=== PATIENT | female | born 1990 | race African-American/Black ===

== ENCOUNTER 2017-01-10 12:52 | Emergency (ER) | payer OTHER ==
[~2017-01-10] VITALS: Ht 177.8 cm; Wt 104.0 kg
[~2017-01-10 12:52] MED LIST: AMOXICILLIN500 MG PO; CIPRO500 MG OR; CIPROFLOXACN500 MG PO; IBUPROFEN600 MG PO; IRON325 MG OR; IRON325 MG PO; NO; NO MEDS; NORCO1 TA2 PO; PERI-COLACE1 TAB PO; PRENATA3 PO; PRENATABS OR; ULTRAM50 M1 PO; ULTRAM50 MG OR
[2017-01-10] MEDS ORDERED: MOTRIN800 MG PO (13:55)
[2017-01-10] MEDS ORDERED: ZITHROMAX250 MG PO (13:55)
[2017-01-10] MEDS ORDERED: TESSALON PER100 MG PO (13:55)
[2017-01-10 14:00] VITALS: BP 167/88
== END 2017-01-10 14:11 | disposition home or self-care (01) | DRG 203 ==
LOC: ED 12:52
DX: J40 Bronchitis, not specified as acute or chronic (principal); R09.81 Nasal congestion; R05 Cough; R50.9 Fever, unspecified

== ENCOUNTER 2017-12-05 01:41 | Emergency (ER) | payer SELFPAY ==
[~2017-12-05 01:41] MED LIST changes: +MOTRIN800 MG PO; +TESSALON PER100 MG PO; +ZITHROMAX250 MG PO
== END 2017-12-05 01:57 | disposition left against medical advice (07) | DRG 951 ==
LOC: ED 01:41 → LWOBS 01:57
DX: Z91.19 Patient's noncompliance with other medical treatment and regimen (principal)

== ENCOUNTER 2017-12-10 07:24 | Emergency (ER) | payer SELFPAY ==
[~2017-12-10] VITALS: Ht 177.8 cm; Wt 100.0 kg
[2017-12-10 08:12] LABS: IMMATURE GRANULOCYTES 0.4 % (0.0-1.0); MEAN CORPUSCULAR HGB 22.8 pG CALC (26.0-32.0); MEAN CORPUSCULAR HGB CONC 30.6 g/L CALC (32.0-36.0); NEUT# 6.07 thou/uL (2.00-7.15); RED BLOOD COUNT 4.12 mill/uL (4.20-5.60); RED CELL DISTRI WIDTH 15.8 % (11.5-15.5)
[2017-12-10 08:17] LABS: HEMATOCRIT 30.7 % (37.0-47.0); HEMOGLOBIN 9.4 g/dl (12.0-16.0); MEAN CELL VOLUME 74.5 fL CALC (80.0-100.0)
[2017-12-10 08:27] LABS: INFLUENZA A NONE DETECTED (NONE DETECT); INFLUENZA B NONE DETECTED (NONE DETECT)
[2017-12-10] MEDS ORDERED: MOTRIN800 MG PO (08:37)
[2017-12-10 08:41] VITALS: BP 137/81
== END 2017-12-10 08:41 | disposition home or self-care (01) | DRG 866 ==
LOC: ED 07:24
PROVIDERS: Family Medicine
DX: B34.9 Viral infection, unspecified (principal); R05 Cough; R07.1 Chest pain on breathing; R50.9 Fever, unspecified; R09.89 Other specified symptoms and signs involving the circulatory and respiratory systems; R09.81 Nasal congestion

== ENCOUNTER 2018-11-16 11:03 | Emergency (ER) | payer SELFPAY ==
[~2018-11-16] VITALS: Ht 177.8 cm; Wt 109.0 kg
[2018-11-16] MEDS ORDERED: PENICILLN VK500 MG PO (11:29)
[2018-11-16 11:35] VITALS: BP 120/67
== END 2018-11-16 11:35 | disposition home or self-care (01) | DRG 158 ==
LOC: ED 11:03
DX: K04.7 Periapical abscess without sinus (principal); M84.48XA Pathological fracture, other site, initial encounter for fracture; K02.9 Dental caries, unspecified

== ENCOUNTER 2019-08-19 23:31 | Emergency (ER) | payer SELFPAY ==
[~2019-08-19 23:31] MED LIST changes: +PENICILLN VK500 MG PO
== END 2019-08-20 00:15 | disposition left against medical advice (07) | DRG 951 ==
LOC: ED 23:31 → LWOBS 08-20 00:15
DX: Z53.21 Procedure and treatment not carried out due to patient leaving prior to being seen by health care provider (principal)

== ENCOUNTER 2020-01-27 20:35 | Emergency (ER) | payer OTHER ==
[2020-01-27] MEDS ORDERED: MOTRIN400 MG/TAB PO ×2 (21:28)
[2020-01-27] MEDS ORDERED: AMOXICILLIN500 M2 PO ×2 (21:28)
[2020-01-27 21:33] VITALS: BP 137/67
== END 2020-01-27 21:33 | disposition home or self-care (01) ==
LOC: ED 20:35
DX: K04.7 Periapical abscess without sinus (principal); K05.10 Chronic gingivitis, plaque induced

== ENCOUNTER 2020-05-11 13:19 | Emergency (ER) | payer OTHER ==
[~2020-05-11] VITALS: Ht 177.8 cm; Wt 118.0 kg
[~2020-05-11 13:19] MED LIST changes: +AMOXICILLIN500 M2 PO; +MOTRIN400 MG/TAB PO
[2020-05-11 14:18] LABS: HEMATOCRIT 28.6 % (37.0-47.0); IMMATURE GRANULOCYTES 0.3 % (0.0-5.0); MEAN CELL VOLUME 70.6 fL CALC (80.0-100.0); MEAN CORPUSCULAR HGB 19.8 pG CALC (26.0-32.0); NEUT# 1.84 thou/uL (2.00-7.15); RED BLOOD COUNT 4.05 mill/uL (4.20-5.60); RED CELL DISTRI WIDTH 17.4 % (11.5-15.5)
[2020-05-11 14:31] LABS: ALBUMIN 4.2 g/dL (3.2-5.0); ALKALINE PHOSPHATASE 55 u/l (38-126); ANION GAP 12 (6-22 (CALC)); BILIRUBIN, TOTAL 0.3 mg/dL (0.0-1.4); BUN 11 mg/dL (7-17); BUN/CREATININE RATIO 16 (12-20 (CALC)); CARBON DIOXIDE 24 mmol/l (22-30); CHLORIDE 105 mmol/l (95-108); CREATININE 0.7 mg/dL (0.5-1.0); GFR > 60 ML/MIN (>=60 (CALC)); GFR FOR AFR.AMER. > 60 ML/MIN (>=60 (CALC)); POTASSIUM 3.7 mmol/l (3.5-5.1); PROTHROMBIN TIME 10.3 SECONDS (9.0-12.5); SODIUM 137 mmol/l (137-146); TOTAL PROTEIN 7.8 g/dL (6.3-8.2)
[2020-05-11 14:32] LABS: SGOT/AST 27 u/l (14-36)
[2020-05-11 14:39] LABS: URINE BILIRUBIN - DIPSTICK NEGATIVE (NEGATIVE); URINE BLOOD DIPSTICK NEGATIVE (NEGATIVE); URINE COLOR YELLOW; URINE GLUCOSE - DIPSTICK NEGATIVE (NEGATIVE); URINE KETONE NEGATIVE (NEGATIVE); URINE LEUK ESTERASE NEGATIVE (NEGATIVE); URINE NITRITE - DIPSTICK NEGATIVE (Negative); URINE PROTEIN - DIPSTICK NEGATIVE (NEG-TRACE); URINE SPECIFIC GRAVITY >=1.030; URINE UROBILINOGEN - DIPSTICK 0.2 E.U./dL (0.2)
[2020-05-11 15:55] VITALS: BP 121/57
== END 2020-05-11 15:55 | disposition home or self-care (01) ==
LOC: ED 13:19
PROVIDERS: Student in an Organized Health Care Education/Training Program
DX: R07.89 Other chest pain (principal); D50.9 Iron deficiency anemia, unspecified

== ENCOUNTER 2020-07-11 14:13 | Emergency (ER) | payer OTHER ==
[~2020-07-11] VITALS: Ht 177.8 cm; Wt 118.0 kg
[2020-07-11] MEDS ORDERED: VOLTAREN1%GEL TOP (16:47)
[2020-07-11] MEDS ORDERED: CYCLOBENZAPR5 MG PO (16:47)
[2020-07-11 16:55] VITALS: BP 137/89
== END 2020-07-11 16:55 | disposition home or self-care (01) ==
LOC: ED 14:13
DX: M54.5 Low back pain (principal)

== ENCOUNTER 2020-09-06 11:13 | Emergency (ER) | payer OTHER ==
[~2020-09-06] VITALS: Ht 177.8 cm; Wt 115.8 kg
[~2020-09-06 11:13] MED LIST changes: +CYCLOBENZAPR5 MG PO; +VOLTAREN1%GEL TOP
[2020-09-06 13:40] VITALS: BP 129/79
== END 2020-09-06 13:40 | disposition home or self-care (01) ==
LOC: ED 11:13
DX: U07.1 COVID-19 (principal); R52 Pain, unspecified

== ENCOUNTER 2021-11-07 19:54 | Emergency (ER) | payer OTHER | END 2021-11-08 00:08 | disposition left against medical advice (07) | DRG 951 | LOC: ED 19:54 → LWOBS 21:40 | DX: Z53.21 Procedure and treatment not carried out due to patient leaving prior to being seen by health care provider (principal) ==

== ENCOUNTER 2022-02-18 12:44 | Emergency (ER) | payer OTHER ==
[2022-02-18] VITALS (7 sets, daily range): BP systolic 106–131; BP diastolic 54–87
[~2022-02-18] VITALS: Ht 177.8 cm; Wt 129.0 kg
[2022-02-18 13:39] LABS: HEMATOCRIT 34.3 % (37.0-47.0); IMMATURE GRANULOCYTES 0.1 % (0.0-5.0); MEAN CORPUSCULAR HGB 24.3 pG CALC (26.0-32.0); MEAN CORPUSCULAR HGB CONC 29.7 g/dL CAL (32.0-36.0); NEUT# 5.88 thou/uL (2.00-7.15); RED BLOOD COUNT 4.19 mill/uL (4.20-5.60); RED CELL DISTRI WIDTH 17.8 % (11.5-15.5)
[2022-02-18 13:42] LABS: HEMOGLOBIN 10.2 g/dl (12.0-16.0); MEAN CELL VOLUME 81.9 fL CALC (80.0-100.0)
[2022-02-18 13:56] LABS: ALKALINE PHOSPHATASE 64 u/l (38-126); ANION GAP 11 (6-22 (CALC)); BILIRUBIN, TOTAL 0.3 mg/dL (0.0-1.4); BUN 10 mg/dL (7-17); BUN/CREATININE RATIO 13 (12-20 (CALC)); CARBON DIOXIDE 27 mmol/l (22-30); CHLORIDE 102 mmol/l (95-108); CREATININE 0.8 mg/dL (0.5-1.0); GFR FOR AFR.AMER. > 60 ML/MIN (>=60 (CALC)); GFR OTHER RACES > 60 ML/MIN (>=60 (CALC)); POTASSIUM 4.1 mmol/l (3.5-5.1); SGOT/AST 25 u/l (14-36); SODIUM 135 mmol/l (137-146); TOTAL PROTEIN 7.5 g/dL (6.3-8.2)
[2022-02-18 13:59] LABS: URINE BILIRUBIN - DIPSTICK NEGATIVE (NEGATIVE); URINE BLOOD DIPSTICK TRACE-INTACT (NEGATIVE); URINE COLOR YELLOW; URINE GLUCOSE - DIPSTICK NEGATIVE (NEGATIVE); URINE KETONE TRACE mg/dL (NEGATIVE); URINE PROTEIN - DIPSTICK 30 mg/dL (NEG-TRACE); URINE SPECIFIC GRAVITY 1.025
[2022-02-18 14:03] LABS: URINE BACTERIA MODERATE hpf; URINE LEUK ESTERASE MODERATE (NEGATIVE); URINE NITRITE - DIPSTICK POSITIVE (Negative); URINE WBC 50-100 WBC/hpf (0-5)
[2022-02-18] MEDS ORDERED: KEFLEX500 MG PO (15:27)
[2022-02-18] MEDS ORDERED: NAPROXEN500 MG PO (15:27)
== END 2022-02-18 15:59 | disposition home or self-care (01) ==
LOC: ED 12:44
PROVIDERS: Nurse Practitioner
DX: N39.0 Urinary tract infection, site not specified (principal); B96.20 Unspecified Escherichia coli [E. coli] as the cause of diseases classified elsewhere; R51.9 Headache, unspecified

== ENCOUNTER 2022-06-07 13:00 | Emergency (ER) | payer OTHER ==
[~2022-06-07] VITALS: Ht 177.8 cm; Wt 109.0 kg
[~2022-06-07 13:00] MED LIST changes: +KEFLEX500 MG PO; +NAPROXEN500 MG PO
[2022-06-07] MEDS ORDERED: ZPAK PO (13:14)
[2022-06-07 13:16] VITALS: BP 108/76
== END 2022-06-07 15:10 | disposition home or self-care (01) ==
LOC: ED 13:00
DX: J06.9 Acute upper respiratory infection, unspecified (principal)

== ENCOUNTER 2022-09-11 08:28 | Emergency (ER) | payer OTHER ==
[~2022-09-11] VITALS: Ht 177.8 cm; Wt 125.0 kg
[~2022-09-11 08:28] MED LIST changes: +ZPAK PO
[2022-09-11] MEDS ORDERED: EFFEXOR XR75 MG/CAP PO (08:35)
[2022-09-11 08:46] LABS: URINE BILIRUBIN - DIPSTICK NEGATIVE (NEGATIVE); URINE BLOOD DIPSTICK MODERATE (NEGATIVE); URINE COLOR YELLOW; URINE GLUCOSE - DIPSTICK NEGATIVE (NEGATIVE); URINE KETONE NEGATIVE (NEGATIVE); URINE PH 6.5 (4.5-8.0); URINE PROTEIN - DIPSTICK TRACE mg/dL (NEG-TRACE); URINE UROBILINOGEN - DIPSTICK 0.2 E.U./dL (0.2)
[2022-09-11 08:48] LABS: URINE LEUK ESTERASE MODERATE (NEGATIVE); URINE NITRITE - DIPSTICK POSITIVE (Negative)
[2022-09-11 08:51] LABS: URINE BACTERIA MANY hpf; URINE RBC 25-50 RBC/hpf (0-5); URINE WBC >100 WBC/hpf (0-5)
[2022-09-11] MEDS ORDERED: PYRIDIUM200 MG PO (08:51)
[2022-09-11] MEDS ORDERED: KEFLEX500 MG PO (08:51)
[2022-09-11 08:58] VITALS: BP 112/68
== END 2022-09-11 09:05 | disposition home or self-care (01) ==
LOC: ED 08:28
PROVIDERS: Emergency Medicine
DX: N39.0 Urinary tract infection, site not specified (principal); B96.20 Unspecified Escherichia coli [E. coli] as the cause of diseases classified elsewhere

== ENCOUNTER 2022-11-20 22:48 | Emergency (ER) | payer OTHER ==
[~2022-11-20] VITALS: Ht 177.8 cm; Wt 100.0 kg
[~2022-11-20 22:48] MED LIST changes: +EFFEXOR XR75 MG/CAP PO; +PYRIDIUM200 MG PO
[2022-11-20 23:24] VITALS: BP 117/73
[2022-11-20 23:30] VITALS: BP 106/70
[2022-11-20 23:45] VITALS: BP 121/78
[2022-11-20 23:55] LABS: URINE BILIRUBIN - DIPSTICK NEGATIVE (NEGATIVE); URINE BLOOD DIPSTICK NEGATIVE (NEGATIVE); URINE COLOR YELLOW; URINE GLUCOSE - DIPSTICK NEGATIVE (NEGATIVE); URINE KETONE NEGATIVE (NEGATIVE); URINE PROTEIN - DIPSTICK NEGATIVE (NEG-TRACE); URINE SPECIFIC GRAVITY >=1.030
[2022-11-20 23:56] LABS: BASO% 0.6 % (0-3); EOS% 3.5 % (0-8); HEMOGLOBIN 11.2 g/dl (12.0-16.0); IMMATURE GRANULOCYTES 0.2 % (0.0-5.0); LYMPH% 41.4 % (15-41); MEAN CORPUSCULAR HGB CONC 30.3 g/dL CAL (32.0-36.0); MONO% 10.6 % (2-13); NEUT# 2.27 thou/uL (2.00-7.15); NEUT% 43.7 % (42-76); RED BLOOD COUNT 4.3 mill/uL (4.20-5.60); RED CELL DISTRI WIDTH 15.8 % (11.5-15.5)
[2022-11-20 23:56] LABS: URINE LEUK ESTERASE SMALL (NEGATIVE); URINE NITRITE - DIPSTICK POSITIVE (Negative)
[2022-11-21] VITALS: BP 119/69
[2022-11-21 00:13] LABS: ALBUMIN 4.1 g/dL (3.2-5.0); ALKALINE PHOSPHATASE 67 u/l (38-126); ANION GAP 10 (6-22 (CALC)); BUN 11 mg/dL (7-17); BUN/CREATININE RATIO 15 (12-20 (CALC)); CARBON DIOXIDE 28 mmol/l (22-30); CHLORIDE 106 mmol/l (95-108); CREATININE 0.7 mg/dL (0.5-1.0); GFR FOR AFR.AMER. > 60 ML/MIN (>=60 (CALC)); GFR OTHER RACES > 60 ML/MIN (>=60 (CALC)); POTASSIUM 3.5 mmol/l (3.5-5.1); SGOT/AST 30 u/l (14-36); SODIUM 140 mmol/l (137-146); TOTAL PROTEIN 7.4 g/dL (6.3-8.2)
[2022-11-21 00:15] LABS: URINE CALCIUM OXALATE CRYSTALS FEW lpf
[2022-11-21 00:16] LABS: URINE BACTERIA MANY hpf
[2022-11-21 00:31] VITALS: BP 99/49
[2022-11-21] MEDS ORDERED: BACTRIM DS1 TAB PO (00:33)
[2022-11-21] MEDS ORDERED: MECLIZINE25 MG PO (00:33)
[2022-11-21 01:01] VITALS: BP 107/67
== END 2022-11-21 01:02 | disposition home or self-care (01) ==
LOC: ED 22:48
PROVIDERS: Family Medicine
DX: R42 Dizziness and giddiness (principal); N39.0 Urinary tract infection, site not specified; B96.20 Unspecified Escherichia coli [E. coli] as the cause of diseases classified elsewhere; Z87.440 Personal history of urinary (tract) infections

== ENCOUNTER 2022-12-17 10:21 | Emergency (ER) | payer OTHER ==
[~2022-12-17] VITALS: Ht 177.8 cm; Wt 135.2 kg
[~2022-12-17 10:21] MED LIST changes: +BACTRIM DS1 TAB PO; +MECLIZINE25 MG PO
[2022-12-17] MEDS ORDERED: AMOX/K CLAV875 M1 PO (12:05)
[2022-12-17 12:30] VITALS: BP 125/77
== END 2022-12-17 12:35 | disposition home or self-care (01) ==
LOC: ED 10:21
DX: J32.9 Chronic sinusitis, unspecified (principal); Z20.822 Contact with and (suspected) exposure to COVID-19

== ENCOUNTER 2023-09-17 09:23 | Emergency (ER) | payer OTHER ==
[~2023-09-17] VITALS: Ht 177.8 cm; Wt 99.0 kg
[~2023-09-17 09:23] MED LIST changes: +AMOX/K CLAV875 M1 PO; +OMNI-PAC300 MG PO
[2023-09-17 09:35] VITALS: BP 120/80
[2023-09-17 09:45] VITALS: BP 119/81
[2023-09-17 10:00] VITALS: BP 113/74
[2023-09-17 10:15] VITALS: BP 117/79
[2023-09-17 10:30] VITALS: BP 111/69
[2023-09-17] MEDS ORDERED: PAXLOVID PO (10:33)
[2023-09-17 10:45] VITALS: BP 121/82
== END 2023-09-17 10:50 | disposition home or self-care (01) ==
LOC: ED 09:23
DX: U07.1 COVID-19 (principal); R05.9 Cough, unspecified; R50.9 Fever, unspecified; R52 Pain, unspecified

== ENCOUNTER 2024-02-26 08:35 | Emergency (ER) | payer OTHER ==
[~2024-02-26] VITALS: Ht 177.8 cm; Wt 117.9 kg
[~2024-02-26 08:35] MED LIST changes: +CITRATE OF MEGNESIA PO; +MIRALAX17 GM PO; +PAXLOVID PO
[2024-02-26 08:39] VITALS: BP 112/73
[2024-02-26 08:45] VITALS: BP 94/76
[2024-02-26 09:00] VITALS: BP 115/74
[2024-02-26 09:15] VITALS: BP 107/70
[2024-02-26] MEDS ORDERED: AMOXICILLIN500 MG PO (09:23)
[2024-02-26 09:30] VITALS: BP 117/67
== END 2024-02-26 09:34 | disposition home or self-care (01) ==
LOC: ED 08:35
DX: J02.9 Acute pharyngitis, unspecified (principal); Z20.822 Contact with and (suspected) exposure to COVID-19